=== PATIENT | female | born 1960 | race Caucasian/White ===

== ENCOUNTER → 2016-04-17 | Outpatient (CLI) | payer BC ==
--- NOTE | 2016-04-17 14:00 | REP ---
ULTRASOUND OF THE LEFT NEC SOFT TISSUES? Real-time sonographic evaluation of the left neck soft tissues. At the site of the tender palpable abnormality a few small lymph nodes are seen, measuring 8 x 4 x 5 mm, 11 x 4 x 6 mm and 7 x 3 x 6 mm. No fluid collection is seen. IMPRESSION: Several lymph nodes identified at the site of the reported palpable abnormality, the largest is 11 x 4 x 6 mm. Signed by Brad Logan MD 04/17/2016 04:17 P
== END ==
LOC: M RAD 12:32
PROVIDERS: ATTEND Nurse Practitioner Family
DX: R59.0 Localized enlarged lymph nodes (principal)